=== PATIENT | male | born 1950 | race African-American/Black ===

== ENCOUNTER 2016-05-11 10:39 | Emergency (ER) | payer MEDICAID ==
[2016-05-11 10:47] VITALS: BP 124/105; PULSE 86; RESP 16; TEMP 97.7; O2SAT 93
--- NOTE | 2016-05-11 11:36 | EDPHY ---
H & P Time Seen by Provider: 05/11/16 11:13 HPI/ROS: CHIEF COMPLAINT: My eustachian tubes hurt x 1 year HISTORY OF PRESENT ILLNESS: 65-year-old male complaining of bilateral eustachian tube pain for the past year. Has been experiencing drainage with he has been evacuating with a modified turkey baster with tube on the end. Has been to his PCP on numerous instances but expresses frustration and would like to see ENT. No hearing loss. No barotrauma. No dizziness. No headache. No tinnitus. No skin lesions. PRIMARY CARE PROVIDER: [facility] REVIEW OF SYSTEMS: A ten point review of systems was performed and is negative with the exception of the items mentioned in the HPI PHYSICAL EXAM (Prior to examination, patient consented to physical exam, hands were washed and my usual and customary physical exam procedures followed) 1) GENERAL: Well-developed, well-nourished, alert and oriented. Appears to be in no acute distress. 2) HEAD: Normocephalic 3) HEENT: sclera anicteric. Oropharynx clear, no lesions. Nasopharynx clear, no lesions, no rhinorrhea. Bilateral ears have clear EACs, no otorrhea, no crusting at EAC meatus, no pain with movement of auricle, mastoid nontender, nonboggy. TMs intact, no erythema, no bulging. No skin lesions 4) LUNGS: Breathing comfortably. Smoking Status: Current every day smoker Constitutional: Initial Vital Signs Temperature (C) 36.5 C 05/11/16 10:44 Heart Rate 86 05/11/16 10:44 Respiratory Rate 16 05/11/16 10:44 Blood Pressure 124/105 H 05/11/16 10:44 O2 Sat (%) 93 05/11/16 10:44 O2 Delivery Mode Room Air Allergies/Adverse Reactions: No Known Allergies Allergy (Verified 02/15/16 14:31) Home Medications: Medication Instructions Recorded Albuterol Hfa Anes Only [Proair 2 puffs IH QID #1 mdi 03/17/16 Hfa Icu (*)] Amoxicillin/Clavulanate Pot 875 mg PO BID #14 tab 03/17/16 [Augmentin 875 MG TAB (*)] traMADol 12/01/16 Amoxicillin Trihydrate 500 mg PO Q8 7 Days 05/11/16 [Amoxicillin 500mg cap] MDM/Departure - MDM Medications Given: Discontinued Medications Amoxicillin (Amoxil Chewable 250 Mg Prepack#4) 1 btl TAKEHOME EDNOW ONE PRN Reason: Protocol Stop: 05/11/16 13:11 Last Admin: 05/11/16 13:17 Dose: 1 btl Amoxicillin (Amoxicillin) 500 mg PO EDNOW ONE PRN Reason: Protocol Stop: 05/11/16 13:11 Last Admin: 05/11/16 13:17 Dose: 500 mg ED Course/Re-evaluation: photography manager was consulted. The case manager specialist has ranged for ENT visit tomorrow at 1:[address] Jazzy leyva. I see no otorrhea or evidence of otitis externa on exam. REcomend followup with ENT tomorrow. - Depart Disposition: Home, Routine, Self-Care Clinical Impression: Otalgia of both ears Eustachian tube disorder Qualifiers: Laterality: bilateral Qualifier Code: (H69.93) Unspecified Eustachian tube disorder, bilateral Condition: Good Instructions: Amoxicillin (By mouth), Earache (ED) Additional Instructions: KOMAL, WE HAVE MADE YOU AN APPOINTMENT WITH THE [facility], FOR MAY 12 IN [place]. THE AD[address]ESS [address] [place] [address] IN [place]. THE PHONE NUMBER IS [phone]. PLEASE BE THERE AT 115 TO FILL OUT PAPERWORK. YOUR APPOINTMENT IS AT 140. Prescriptions: Amoxicillin Trihydrate [Amoxicillin 500mg cap] 500 mg PO Q8 7 Days Referrals: Jazzy Leyva MD [Medical Doctor] - 05/12/16 1:15 pm
[2016-05-11] MEDS ORDERED: AMOXICILLIN 250 MG PREPACK#4 BTL TAKEHOME ONE ×2 (12:43→13:10)
== END 2016-05-11 13:18 | disposition home or self-care (01) ==
DX: H69.93 Unspecified Eustachian tube disorder, bilateral (principal); F17.200 Nicotine dependence, unspecified, uncomplicated

== ENCOUNTER 2016-07-01 15:04 | Emergency (ER) | payer MEDICAID ==
[2016-07-01 15:17] VITALS: BP 106/79; RESP 16
[2016-07-01 15:41] VITALS: PULSE 94; TEMP 98.4; O2SAT 93
--- NOTE | 2016-07-01 15:51 | EDPHY ---
H & P Time Seen by Provider: 07/01/16 15:32 HPI/ROS: CHIEF COMPLAINT: Bilateral ear drainage HISTORY OF PRESENT ILLNESS: 65 year male a 1 year history of bilateral ear drainage. He has clear drainage from his ears that he usually notices when he wakes up in the morning. Has seen multiple doctors, without a clear diagnosis. No ear pain. He also a sore throat runny mild past few days. No fever or shortness of breath. REVIEW OF SYSTEMS: General: No fever HEENT: No eye drainage Respiratory: No shortness of breath Gastrointestinal: No vomiting Skin: No rash Neurologic: no headache Past Medical/Surgical History: Hernia Social History: PCP: [facility] Smoking Status: Current every day smoker Physical Exam: General Appearance: Alert well-appearing Eyes: Pupils equal and round, no conjunctival injection ENT, Mouth: Mucous membranes moist, ear canals are normal, tympanic membranes normal, no pharyngeal erythema Neck: Normal inspection, no adenopathy Respiratory: Lungs are clear to auscultation Cardiovascular: Regular rate and rhythm Neurological: A&O, nonfocal, normal gait Skin: Warm and dry, no rash Psychiatric: Mood and affect normal Constitutional: Initial Vital Signs Temperature (C) 36.5 C 07/01/16 15:14 Heart Rate 99 07/01/16 15:14 Respiratory Rate 16 07/01/16 15:14 Blood Pressure 106/79 07/01/16 15:14 O2 Sat (%) 95 07/01/16 15:14 O2 Delivery Mode Room Air Allergies/Adverse Reactions: No Known Allergies Allergy (Verified 02/15/16 14:31) Home Medications: Medication Instructions Recorded Albuterol Hfa Anes Only [Proair 2 puffs IH QID #1 mdi 03/17/16 Hfa Icu (*)] Amoxicillin/Clavulanate Pot 875 mg PO BID #14 tab 03/17/16 [Augmentin 875 MG TAB (*)] traMADol 03/17/16 Amoxicillin Trihydrate 500 mg PO Q8 7 Days 05/11/16 [Amoxicillin 500mg cap] Medical Decision Making ED Course/Re-evaluation: I tried to convince the patient that his ears are normal. There is no evidence of infection and there is no drainage visible. Differential Diagnosis: Includes though not limited to otitis media, otitis externa, pneumonia, abscess. Departure - Departure Disposition: Home, Routine, Self-Care Clinical Impression: Upper respiratory infection Qualifiers: URI type: unspecified viral URI Qualified Code(s): J06.9 - Acute upper respiratory infection, unspecified Ear drainage Qualifiers: Laterality: bilateral Qualified Code(s): H92.13 - Otorrhea, bilateral Condition: Good Instructions: Upper Respiratory Infection (ED) Referrals: Brenda Goldsmith [Primary Care Provider] - As per Instructions
== END 2016-07-01 15:59 | disposition home or self-care (01) ==
DX: J06.9 Acute upper respiratory infection, unspecified (principal); H92.13 Otorrhea, bilateral; F17.200 Nicotine dependence, unspecified, uncomplicated

== ENCOUNTER 2016-07-13 22:49 | Emergency (ER) | payer MEDICAID ==
[2016-07-13 23:05] VITALS: PULSE 90; RESP 16; TEMP 98.1; O2SAT 95
--- NOTE | 2016-07-13 23:37 | EDPHY ---
H & P Stated Complaint: L arm pain, BRISSA ear pain HPI/ROS: HPI CHIEF COMPLAINT: Right ear drainage, right ear pain, left shoulder pain musculoskeletal in nature HISTORY OF PRESENT ILLNESS: this patient very pleasant 65-year-old male, smokes tobacco daily, tells me that he has been having trouble with his ears and sinuses for 2 years. He has had ongoing drainage out of his ears. Presents emergency room this evening as he states that he has pain in his right ear in drainage, no fever, no headache, no neck pain, no mastoid pain. No sore throat, no runny nose. No chest pain or shortness of breath. He also separate complaint is complaining of musculoskeletal left shoulder pain is unsure if he injured it. He is requesting an x-ray of his left shoulder. He denies chest pain shortness of breath or pleuritic pain Past Medical History: Chronic sinus disease Past Surgical History: Hernia repair Social History: Daily tobacco use daily marijuana use, denies illicit drugs or alcohol. Patient tells me "I smoke a lot of MATTHEW/HERB" Family History: Noncontributory ROS REVIEW OF SYSTEMS: A comprehensive 10 point review of systems is otherwise negative aside from elements mentioned in the history of present illness. Exam Constitutional appears well nontoxic triage nursing summary reviewed, vital signs reviewed, awake/alert. Eyes normal conjunctivae and sclera, EOMI, PERRLA. HENT right ear canal cerumen debris in the base of the ear canal, mild erythema, possible early otitis externa, no significant drainage or liquid, right TM is normal, left TM and ear canal normal, sinus normal exam, no mastoid tenderness, normal inspection, atraumatic, moist mucus membranes, no epistaxis, neck supple/ no meningismus, no raccoon eyes. Respiratory clear to auscultation bilaterally, normal breath sounds, no respiratory distress, no wheezing. Cardiovascular rate normal, regular rhythm, no murmur, no edema, distal pulses normal. Gastrointestinal soft, non-tender, no rebound, no guarding, normal bowel sounds, no distension, no pulsatile mass. Genitourinary no CVA tenderness. Musculoskeletal left shoulder: full range of motion distally neurovascular intact good cap refill, good maintenance aide strength, good pulse, full range of motion of the elbow, wrist, hand, shoulder tender palpation over the AC joint and lateral shoulder, axillary nerve intact, no midline vertebral tenderness, full range of motion, no calf swelling, no tenderness of extremities, no meningismus, good pulses, neurovascularly intact. Skin pink, warm, & dry, no rash, skin atraumatic. Neurologic awake, alert and oriented x 3, AAOx3, moves all 4 extremities equally, motor intact, sensory intact, CN II-XII intact, normal cerebellar, normal vision, normal speech. Psychiatric normal mood/affect. Heme/Lymph/Immune no lymphadenopathy. Differential Diagnosis: includes but is not limited to in a particular order otitis externa, musculoskeletal injury, shoulder strain, shoulder fracture, nerve injury, musculoskeletal tear Medical Decision Making: plan for this patient had an x-ray of the left shoulder given musculoskeletal pain, and most likely will be placed on 0 8 drops for possible early right otitis externa. ED x-ray left shoulder:Negative for acute fracture. All degenerative joint disease seen. Image interpreted by myself. [id number]: Re-evaluation at this time this patient appears well nontoxic no acute distress. X-ray has been reviewed with him. No fracture. Will place on otic drops for possible early otitis externa. He understands follow-up with primary care doctor return emergency room if there is any worsening symptoms questions concerns. This time appears well nontoxic is asking for something to eat. Source: Patient - Personal History Current Tetanus/Diphtheria Vaccine: Yes Current Tetanus Diphtheria and Acellular Pertussis (TDAP): Yes Tetanus Vaccine Date: 2 years ago - Medical/Surgical History Hx Asthma: No Hx Chronic Respiratory Disease: No Hx Diabetes: No Hx Cardiac Disease: No Hx Renal Disease: No Hx Cirrhosis: No Hx Alcoholism: No Hx HIV/AIDS: No Hx Splenectomy or Spleen Trauma: No Other PMH: hernia. ongoing external ear infection,abscess and draining, - Social History Smoking Status: Current every day smoker Constitutional: Initial Vital Signs Temperature (C) 36.7 C 07/13/16 23:02 Heart Rate 90 07/13/16 23:02 Respiratory Rate 16 07/13/16 23:02 O2 Sat (%) 95 07/13/16 23:02 O2 Delivery Mode Room Air Allergies/Adverse Reactions: No Known Allergies Allergy (Verified 07/13/16 23:00) Home Medications: Medication Instructions Recorded traMADol 03/17/16 Ciprofloxacin/Hydrocortisone 10 ml OT BID #1 drops.susp 07/13/16 [Cipro Hc Otic Suspension] Departure - Departure Disposition: Home, Routine, Self-Care Clinical Impression: Left shoulder strain Qualifiers: Encounter type: initial encounter Qualified Code(s): S46.912A - Strain of unspecified muscle, fascia and tendon at shoulder and upper arm level, left arm , initial encounter Otitis externa Qualifiers: Otitis externa type: unspecified type Laterality: right Chronicity: acute Qualified Code(s): H60.501 - Unspecified acute noninfective otitis externa, right ear Condition: Good Instructions: Rotator Cuff Injury (ED), Otitis Externa (ED) Referrals: Brenda Goldsmith [Primary Care Provider] - As per Instructions Prescriptions: Ciprofloxacin/Hydrocortisone [Cipro Hc Otic Suspension] 10 ml OT BID #1 drops.susp
[2016-07-14] MEDS ORDERED: IBUPROFEN 200 MG TAB PO ONE ×2 (00:10→00:20)
== END 2016-07-14 00:33 | disposition home or self-care (01) ==
DX: S46.912A Strain of unspecified muscle, fascia and tendon at shoulder and upper arm level, left arm, initial encounter (principal); H60.501 Unspecified acute noninfective otitis externa, right ear; F17.200 Nicotine dependence, unspecified, uncomplicated; X58.XXXA Exposure to other specified factors, initial encounter
CPT/HCPCS: A4565

== ENCOUNTER → 2017-03-02 | Emergency (ER) | payer OTHER, MEDICAID ==
[2017-03-02 16:34] VITALS: BP 143/95; PULSE 91; RESP 16; TEMP 98.6; O2SAT 98
== END | disposition home or self-care (01) ==
DX: Z53.21 Procedure and treatment not carried out due to patient leaving prior to being seen by health care provider (principal)

== ENCOUNTER 2017-04-10 15:06 | Emergency (ER) | payer OTHER, MEDICAID ==
[2017-04-10 15:29] VITALS: BP 137/98; PULSE 62; RESP 18; O2SAT 97
--- NOTE | 2017-04-10 16:16 | EDPHY ---
H & P Time Seen by Provider: 04/10/17 16:00 HPI/ROS: CHIEF COMPLAINT: Ear pain, discharge HISTORY OF PRESENT ILLNESS: The patient is a 66-year-old male who presents to the emergency department with recurring your problems. Patient states that his symptoms have been going on for 2 years. He most recently was seen in [place] started on antibiotics. He took his entire course of antibiotics but is does not recall the name. Over the past weeks it is gradually worsened. He has bilateral ear discomfort. It is mild. He is concerned because he has bilateral ear discharge. This particularly occurs at night. No fevers or chills. No hearing loss. No new cough. The patient denies diabetes. REVIEW OF SYSTEMS: My complete review of systems is negative except as mentioned in the HPI. Past Medical/Surgical History: Includes recurrent ear problems, hernia Social history: The patient smokes but he is trying to quit. Smoking Status: Current every day smoker Physical Exam: 36.9, 137/90, 62, 18, 97% on room air GENERAL: Well-appearing, in no acute distress, alert. HEENT: Eyes normal to inspection, normal pharynx, no signs of dehydration. The patient's TMs are mildly erythematous bilaterally. He does have some whitish clear colored discharge in both external auditory canals. There is no tenderness to palpation with movement of his ear. No mastoid tenderness. NECK: No thyromegaly, no lymphadenopathy, supple. RESPIRATORY: Clear to auscultation bilaterally, no rales, rhonchi or wheezing. CVS: Regular rate and rhythm, no rubs, murmurs, or gallops. ABDOMEN: Soft, nontender, nondistended, no organomegaly. BACK: Normal to inspection, no CVA tenderness. SKIN: Normal color, no rash, warm, dry. No pallor. EXTREMITIES: No pedal edema, no calf tenderness, no Homans sign or cords, no joint swelling. NEURO/PSYCH: Alert and oriented x3, normal mood and affect, normal motor sensory exam. No obvious cranial nerve deficit. Constitutional: Initial Vital Signs Temperature (C) 36.9 C 04/10/17 15:15 Heart Rate 62 04/10/17 15:15 Respiratory Rate 18 04/10/17 15:15 Blood Pressure 137/98 H 04/10/17 15:15 O2 Sat (%) 97 04/10/17 15:15 O2 Delivery Mode Room Air Allergies/Adverse Reactions: No Known Allergies Allergy (Verified 04/10/17 15:24) Home Medications: Medication Instructions Recorded Amoxicillin/Clavulanate Pot 875 mg PO BID 10 Days tab 04/10/17 [Augmentin 875 mg tab] Fluticasone Nasal [Flonase Nasal 2 sprays NASAL DAILY 04/10/17 [place] (RX)] Medical Decision Making ED Course/Re-evaluation: I discussed possible etiologies with the patient. I answered all his questions. The patient will be placed on Augmentin. He has no noted drug allergies. Patient will be also given Cortisporin drops. The patient was given instructions to follow up with ENT. He has previously seen [facility] and will make an appointment to be seen next week. He will return with worsening symptoms. Differential Diagnosis: My differential includes but is not limited to otitis media, otitis externa, malignant otitis, mastoiditis, sinusitis, bacteremia - Data Points Medications Given: Neomycin/Polymyxin/Bacitr/Hydrocort (Cortisporin Ointment) 1 octavia TP TID ANNA Stop: 05/10/17 21:59 Last Admin: 04/10/17 16:34 Dose: 3 drops Discontinued Medications Amoxicillin/Clavulanate Potassium (Augmentin 875mg) 875 mg PO EDNOW ONE PRN Reason: Protocol Stop: 04/10/17 16:18 Last Admin: 04/10/17 16:33 Dose: 875 mg Amoxicillin/Clavulanate Potassium (Augmentin 875mg) 875 mg PO EDNOW ONE PRN Reason: Protocol Stop: 04/10/17 16:19 Last Admin: 04/10/17 16:33 Dose: 875 mg Departure - Departure Disposition: Home, Routine, Self-Care Clinical Impression: Otitis externa Qualifiers: Otitis externa type: unspecified type Chronicity: acute Laterality: bilateral Qualified Code(s): H60.503 - Unspecified acute noninfective otitis externa, bilateral Otitis media Qualifiers: Otitis media type: suppurative Chronicity: acute Laterality: bilateral Recurrence: recurrent Spontaneous tympanic membrane rupture: without spontaneous rupture Qualified Code(s): H66.006 - Acute suppurative otitis media without spontaneous rupture of ear drum, recurrent, bilateral Condition: Good Instructions: Otitis Externa (ED), Ear Infection (ED) Additional Instructions: Your given Augmentin (antibiotic) in the emergency department. Take your 2nd dose of antibiotic this evening when going to bed. Fill your prescription tomorrow and follow the prescription as directed. You been given Cortisporin ear drops. Apply to both ears 3 times daily. Referrals: Brenda Goldsmith [Primary Care Provider] - 2-3 days, if not improved [facility] [Outside] - 5-7 days, if not improved Prescriptions: Amoxicillin/Clavulanate Pot [Augmentin 875 mg tab] 875 mg PO BID 10 Days tab
[2017-04-10] MEDS ORDERED: AMOXICILLIN/CLAVULANATE POT 875/125 MG TAB PO ONE ×2 (16:17→16:18)
[2017-04-10] MEDS ORDERED: NEOMYCIN/POLYMYX B/HC SUSP 10 ML OTIC.BTL ONE (16:30)
[2017-04-10 16:38] VITALS: TEMP 97.5
[2017-04-10] MEDS ORDERED: CORTISPORIN 15 GM OINTMENT TP SCH (22:00)
== END 2017-04-10 16:37 | disposition home or self-care (01) ==
DX: H60.503 Unspecified acute noninfective otitis externa, bilateral (principal); H66.006 Acute suppurative otitis media without spontaneous rupture of ear drum, recurrent, bilateral; F17.200 Nicotine dependence, unspecified, uncomplicated

== ENCOUNTER 2017-04-17 12:17 | Emergency (ER) | payer OTHER, MEDICAID ==
--- NOTE | 2017-04-17 12:58 | EDPHY ---
H & P Stated Complaint: r knee swelling/may have twisted 4 days ago HPI/ROS: CHIEF COMPLAINT: Right knee pain HISTORY OF PRESENT ILLNESS: The patient is a 66 y/o male complaining of a pinching feeling on the inside of his right knee below his knee cap for 4 days. Admits to being on his knees a lot due to his living condition. Denies recent fall or twisting knee. Denies paresthesias, numbness, neck pain, weakness, urinary or bowel complaints. REVIEW OF SYSTEMS: A ten point review of systems was performed and is negative with the exception of the items mentioned in the HPI. The patient was diagnosed with an ear infection on 04/10/2017, started on Augmentin, and is improving. Past medical history: Hernia External ear infection Past surgical history: Denies Family history: Denies Social history: Transient Single Smoker General Appearance: Alert. Vital signs reviewed. Respiratory: Lungs are clear to auscultation; no wheezes, rales, or rhonchi. Cardiovascular: Regular rate and rhythm; no murmur, rub, or gallop. Gastrointestinal: Abdomen is soft and nontender, no masses or organomegaly, bowel sounds normal. Skin: Warm and dry, no rashes on exposed skin, normal color. Back: Nontender to palpation over the thoracolumbar spine. Extremities: Mild swelling of right knee, no warmth or redness. Medial joint line tenderness in right knee. Full active flexion and extension of knee. No calf tenderness or swelling. Pulses: 2+ dorsalis pedis bilaterally Neurological: Alert and oriented. Moving all four extremities easily and equally. Sensation intact to touch of lower extremities. Strength is 5 over 5 right leg with testing of all major motor groups. Normal gait. Psychiatric: Normal affect. - Personal History Current Tetanus/Diphtheria Vaccine: Yes Tetanus Vaccine Date: 2 years ago - Medical/Surgical History Hx Asthma: No Hx Chronic Respiratory Disease: No Hx Diabetes: No Hx Cardiac Disease: No Hx Renal Disease: No Hx Cirrhosis: No Hx Alcoholism: No Hx HIV/AIDS: No Hx Splenectomy or Spleen Trauma: No Other PMH: hernia. ongoing external ear infection,abscess and draining, - Social History Smoking Status: Current every day smoker Constitutional: Initial Vital Signs Temperature (C) 36.3 C 04/17/17 12:33 Heart Rate 66 04/17/17 12:33 Respiratory Rate 17 04/17/17 12:33 Blood Pressure 130/78 H 04/17/17 12:33 O2 Sat (%) 99 04/17/17 12:33 O2 Delivery Mode Room Air Allergies/Adverse Reactions: No Known Allergies Allergy (Verified 04/17/17 12:33) Home Medications: Medication Instructions Recorded Amoxicillin/Clavulanate Pot 875 mg PO BID 10 Days tab 04/10/17 [Augmentin 875 mg tab] Fluticasone Nasal [Flonase Nasal 2 sprays NASAL DAILY 04/10/17 [place] (RX)] Medical Decision Making ED Course/Re-evaluation: The patient is a 66 y/o male presenting with mild swelling of right knee and medial joint line tenderness in his knee. He has full active flexion and extension of knee. He is able to weightbear. No warmth or redness or other signs of infection. There has been no trauma and x-rays are not warranted in this setting. 400mg PO Ibuprofen administered. Reassessed patient and discussed follow up with his PCP within one week for unimproved symptoms. I have also advised him to take 400mg PO Ibuprofen every 6- 8 hours for pain. Return precautions provided; patient is comfortable with this plan. Differential Diagnosis: Considered a differential diagnosis that includes but is not limited to cellulitis, fracture, dislocation, sprain, strain, and contusion. - Data Points Medications Given: Discontinued Medications Ibuprofen (Motrin) 400 mg PO EDNOW ONE Stop: 04/17/17 13:21 Last Admin: 04/17/17 13:28 Dose: 400 mg Departure - Departure Disposition: Home, Routine, Self-Care Clinical Impression: Knee pain, right Qualifiers: Chronicity: acute Qualified Code(s): M25.561 - Pain in right knee Right knee sprain Qualifiers: Encounter type: initial encounter Involved ligament of knee: unspecified ligament Qualified Code(s): S83.91XA - Sprain of unspecified site of right knee , initial encounter Condition: Good Instructions: Knee Sprain (ED), Knee Pain (ED) Additional Instructions: Take 400mg ibuprofen 4 times a day with food for pain. Make sure you take at least 6 hours between dosages. If your symptoms do not improve in one week, follow up with your primary care provider. Return to the emergency department for worsening pain, swelling, numbness, weakness or other concerns. Referrals: Brenda Goldsmith [Primary Care Provider] - As per Instructions Report Scribed for: Lauryn Perkins Report Scribed by: Delphine Stovall Date of Report: 04/17/17 Time of Report: 13:32 Physician Review and Approval Statement: 04/17/17 12:58 Portions of this note were transcribed by the outside medical sales representative. I, Dr. Lauryn Perkins, personally performed the history, physical exam, and medical decision- making; and confirmed the accuracy of the information in the transcribed note.
[2017-04-17] MEDS ORDERED: IBUPROFEN 200 MG TAB PO ONE (13:20)
[2017-04-17 13:24] VITALS: BP 135/80; PULSE 78; RESP 16; TEMP 98.6; O2SAT 97
== END 2017-04-17 13:25 | disposition home or self-care (01) ==
DX: S83.91XA Sprain of unspecified site of right knee, initial encounter (principal); F17.200 Nicotine dependence, unspecified, uncomplicated; X58.XXXA Exposure to other specified factors, initial encounter

== ENCOUNTER 2017-04-20 19:54 | Emergency (ER) | payer OTHER, MEDICAID ==
[2017-04-20 20:06] VITALS: TEMP 98.4
[2017-04-20] MEDS ORDERED: IBUPROFEN 600 MG TAB PO ONE (20:29)
--- NOTE | 2017-04-20 20:33 | EDPHY ---
H & P Time Seen by Provider: 04/20/17 20:11 HPI/ROS: CHIEF COMPLAINT: Right knee pain HISTORY OF PRESENT ILLNESS: The patient is a 66-year-old male who presents emergency department with recurrent right knee pain. Patient was seen in the emergency department on 04/17/2017 for the same complaint. The patient complains of moderate right knee pain. He states he has been crawling on his knees due to his living condition. He reports mild swelling. No redness or warmth. No numbness or tingling. REVIEW OF SYSTEMS: My complete review of systems is negative except as mentioned in the HPI. Past Medical/Surgical History: Includes hernia, ear infection new Past surgical history: Denies Family history: Denies Social history: The patient is homeless. He smokes cigarettes. Smoking Status: Current every day smoker Physical Exam: Vitals noted. Afebrile General Appearance: Alert and no distress. Head: Pupils equal. Normal. Respiratory: No respiratory distress. Cardiac: regular rate and rhythm. Extremities: The patient has minimal swelling to the right knee. There is no warmth or erythema. No streaking up the leg. No patellar tenderness to palpation. Patient's ligaments are stable. There is no pain with passive movement of the knee. No calf tenderness or swelling. No Homans sign or cords. Neurovascular intact distally Skin: No rashes or lesions. Neuro: Alert. Normal mood and affect. Constitutional: Initial Vital Signs Temperature (C) 36.9 C 04/20/17 20:01 Heart Rate 78 04/20/17 20:01 Respiratory Rate 16 04/20/17 20:01 Blood Pressure 134/89 H 04/20/17 20:01 Allergies/Adverse Reactions: No Known Allergies Allergy (Verified 04/20/17 20:05) Home Medications: Medication Instructions Recorded Amoxicillin/Clavulanate Pot 875 mg PO BID 10 Days tab 04/10/17 [Augmentin 875 mg tab] Fluticasone Nasal [Flonase Nasal 2 sprays NASAL DAILY 04/10/17 [place] (RX)] Medical Decision Making - Diagnostics Imaging Results: Imaging Impressions Knee X-Ray 04/20/17 20:29 Impression: 1. Suspect joint mice in the medial tibiofemoral compartment, with mild tibiofemoral joint space narrowing. 2. Consider MRI imaging followup. ED Course/Re-evaluation: In the emergency department I discussed possible etiologies with the patient. I answered all his questions. Patient was given ibuprofen 40 mg orally. An x- ray of his right knee was ordered. I reviewed the patient's medical record from 04/17/2017 X-ray: Please refer to the dictated report. Patient has multiple small osseous intra-articular spots. No acute fracture dislocation. I discussed the results with the patient. I answered all his questions. He will follow up with Orthopedics. He is given warnings prior to leaving. Differential Diagnosis: My differential includes but is not limited to degenerative joint disease, arthritis, fracture, dislocation, septic joint, gout, cellulitis - Data Points Medications Given: Discontinued Medications Ibuprofen (Motrin) 600 mg PO EDNOW ONE Stop: 04/20/17 20:30 Last Admin: 04/20/17 20:57 Dose: 600 mg Departure - Departure Disposition: Home, Routine, Self-Care Clinical Impression: Right knee pain Qualifiers: Chronicity: acute Qualified Code(s): M25.561 - Pain in right knee Condition: Good Instructions: Knee Pain (ED) Additional Instructions: Your x-ray did not show any fracture dislocation. Follow up with the [facility]. Take ibuprofen regularly for the discomfort. Referrals: [facility],. [Clinic] - 5-7 days, call for appt. Yasmin Norris MD [Medical Doctor] - 5-7 days, call for appt.
[2017-04-20 22:22] VITALS: BP 113/70; PULSE 82; RESP 18; O2SAT 92
== END 2017-04-20 22:22 | disposition home or self-care (01) ==
DX: M25.561 Pain in right knee (principal); F17.200 Nicotine dependence, unspecified, uncomplicated

== ENCOUNTER 2018-01-08 12:27 | Emergency (ER) | payer OTHER, MEDICAID ==
--- NOTE | 2018-01-08 14:34 | EDPHY ---
General - History Smoking Status: Current every day smoker Time Seen by Provider: 01/08/18 14:26 Narrative: CHIEF COMPLAINT: Right ear pain HISTORY OF PRESENT ILLNESS: Patient presents with complaints of right ear pain patent says he has had this for 3 years, but it has become worse over the past 3 days. He describes it as a fluid behind the ears the drains into his throat. It is painful. No fever. No headache. No nausea vomiting. No chest pain, cough or shortness of breath. He says he has been seen for this several times in the past, treated with antibiotic steroids and done well. No other associated complaints or modifying factors. REVIEW OF SYSTEMS: Ten systems reviewed and are negative unless otherwise noted in the HPI PAST MEDICAL HISTORY: Hernia, recurrent ear infections PAST SURGICAL HISTORY: No surgical history SOCIAL HISTORY: Daily smoker FAMILY HISTORY: Noncontributory EXAMINATION: General Appearance: Alert, no distress ENT: EACs are clear bilaterally. They left TM has serous otitis media without acute otitis media or perforation. Right TM is bulging with mild erythema and serous otitis media. No mastoiditis. Cardiovascular: Pulses normal throughout. Brisk cap refill Neurological: A&O, sensory symmetric, strength symmetric Skin: Warm and dry, no rash Extremities: Nontender, no pedal edema Psychiatric: Mood and affect normal DIFFERENTIAL DIAGNOSES: Including but not limited to serous otitis media, acute otitis media, chronic serous otitis media, upper respiratory infection MDM: 2:30 p.m. Right-sided serous otitis media with mild otitis media without perforation. No otitis externa. No mastoiditis. We discussed the need for short course of steroid, pseudoephedrine and possible antibiotic therapy. We also discussed that he for smoking cessation and follow up with ENT physician. We discussed ED precautions for any worsening symptoms, headache or drainage from the ear. We discussed anti-inflammatories after the steroid. We discussed follow up with primary care physician as well. I have answered all his questions. He is happy with this plan and discharged in stable condition. SUPERVISION: This patient was independently evaluated without direct involvement of or examination by the attending physician. (Da Deng) The patient was evaluated and managed by the physician registered nurse first assistant. I have reviewed this chart and I agree with the findings and plan of care as documented , as indicated by my signature. I am the secondary supervising physician. ( Lauryn Perkins) - Objective Vital Signs: Initial Vital Signs Temperature (C) 36.8 C 01/08/18 12:44 Heart Rate 77 01/08/18 12:44 Respiratory Rate 18 01/08/18 12:44 Blood Pressure 125/95 H 01/08/18 12:44 O2 Sat (%) 98 01/08/18 12:44 O2 Delivery Mode Room Air Allergies/Adverse Reactions: No Known Allergies Allergy (Verified 12/06/17 11:47) Home Medications: Medication Instructions Recorded Azithromycin [Zithromax] 250 mg PO DAILY #6 tab 12/06/17 predniSONE 40 mg PO DAILY #10 tab 12/06/17 Amoxicillin/Clavulanate Pot 875 mg PO BID #14 tab 01/08/18 [Augmentin 875 MG TAB (*)] Dexamethasone [Decadron 4 MG (*)] 8 mg PO ONCE #2 tab 01/08/18 Departure - Departure Disposition: Home, Routine, Self-Care Clinical Impression: Serous otitis media, Otitis media Condition: Good Instructions: Ear Infection (ED), Serous Otitis Media (ED) Additional Instructions: 1. Recommend smoking cessation 2. Medications as prescribed to completion 3. Follow up with primary care physician this week 4. Contact ENT physician for outpatient care 5. ED precautions as discussed 6. Recommend pseudoephedrine, 30 mg every 6-8 hours as needed Referrals: Brenda Goldsmith [Primary Care Provider] - As per Instructions Adama Robin MD [Medical Doctor] - As per Instructions Prescriptions: Amoxicillin/Clavulanate Pot [Augmentin 875 MG TAB (*)] 875 mg PO BID #14 tab Dexamethasone [Decadron 4 MG (*)] 8 mg PO ONCE #2 tab
[2018-01-08 14:48] VITALS: BP 136/76
== END 2018-01-08 14:48 | disposition home or self-care (01) ==
DX: H66.91 Otitis media, unspecified, right ear (principal); F17.200 Nicotine dependence, unspecified, uncomplicated

== ENCOUNTER 2018-02-04 09:38 | Emergency (ER) | payer OTHER, MEDICAID ==
[2018-02-04] MEDS ORDERED: LIDOCAINE 4%/MENTHOL 1% PATCH TD ONE (09:57)
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
[2018-02-04] MEDS ORDERED: IBUPROFEN 600 MG TAB PO ONE (09:58)
[2018-02-04 10:58] VITALS: BP 119/73
[2018-02-04] MEDS ORDERED: PATCH REMOVAL 1 EA PATCH TD SCH (21:00)
== END 2018-02-04 10:59 | disposition home or self-care (01) ==
DX: H65.493 Other chronic nonsuppurative otitis media, bilateral (principal); M25.512 Pain in left shoulder; R07.89 Other chest pain; T76.11XA Adult physical abuse, suspected, initial encounter; F17.200 Nicotine dependence, unspecified, uncomplicated

== ENCOUNTER 2018-03-25 04:59 | Emergency (ER) | payer OTHER, MEDICAID ==
--- NOTE | 2018-03-25 05:31 | EDPHY ---
H & P Stated Complaint: "fluid in both ears" Time Seen by Provider: 03/25/18 05:30 HPI/ROS: HPI CHIEF COMPLAINT: Bilateral ear discomfort. HISTORY OF PRESENT ILLNESS: Very pleasant 67-year-old male, presents emergency room bilateral ear discomfort. Feels full. Thinks there infected. No fever. Denies sore throat, denies chest pain or shortness of breath, denies productive cough. Past Medical History: Chronic ear pain, hernia. Past Surgical History: Denies significant surgical history Social History: Homeless, lives in his RV. Denies drugs or alcohol. Family History: Noncontributory PCP Dr. Goldsmith. ROS REVIEW OF SYSTEMS: 10 Systems were reviewed and negative with the exception of the elements mentioned in the history of present illness. Exam Constitutional triage nursing summary reviewed, vital signs reviewed, awake/ alert. Eyes normal conjunctivae and sclera, EOMI, PERRLA. HENT bilateral TMs are bulging, no significant redness. Fluid behind both ears. Posterior pharynx unremarkable. moist mucus membranes, no epistaxis, neck supple/ no meningismus, no raccoon eyes. Respiratory clear to auscultation bilaterally, normal breath sounds, no respiratory distress, no wheezing. Cardiovascular rate normal, regular rhythm, no murmur, no edema, distal pulses normal. Gastrointestinal soft, non-tender, no rebound, no guarding, normal bowel sounds, no distension, no pulsatile mass. Genitourinary no CVA tenderness. Musculoskeletal no midline vertebral tenderness, full range of motion, no calf swelling, no tenderness of extremities, no meningismus, good pulses, neurovascularly intact. Skin pink, warm, & dry, no rash, skin atraumatic. Neurologic awake, alert and oriented x 3, AAOx3, moves all 4 extremities equally, motor intact, sensory intact, CN II-XII intact, normal cerebellar, normal vision, normal speech. Psychiatric normal mood/affect. Heme/Lymph/Immune no lymphadenopathy. Differential Diagnosis: Includes but is not limited to in a particular order bilateral otitis media, middle ear effusions, sinus disease Medical Decision Making: Plan for this patient recommend Augmentin, close follow up with ENT. Return precautions discussed with the patient. There is no mastoid tenderness on exam. No evidence of mastoiditis. Re-evaluation: 0542: Plan for this patient Augmentin 1st dose here in emergency room. Augmentin prescription provided. Planes of bilateral ear pain. Fullness. He does have fluid behind both ears no significant redness. No mastoid tenderness on exam. Patient nontoxic appearing Follow-up PCP as well as ENT. Return if worse. Source: Patient - Personal History Current Tetanus/Diphtheria Vaccine: Yes Current Tetanus Diphtheria and Acellular Pertussis (TDAP): Yes Tetanus Vaccine Date: 2 years ago - Medical/Surgical History Hx Asthma: No Hx Chronic Respiratory Disease: No Hx Diabetes: No Hx Cardiac Disease: No Hx Renal Disease: No Hx Cirrhosis: No Hx Alcoholism: No Hx HIV/AIDS: No Hx Splenectomy or Spleen Trauma: No Other PMH: hernia. chronic ear infection - Social History Smoking Status: Current some day smoker Constitutional: Initial Vital Signs Temperature (C) 36.4 C 03/25/18 05:00 Heart Rate 98 03/25/18 05:00 Respiratory Rate 16 03/25/18 05:00 Blood Pressure 116/91 H 03/25/18 05:00 O2 Sat (%) 97 03/25/18 05:00 O2 Delivery Mode Room Air Allergies/Adverse Reactions: No Known Allergies Allergy (Verified 03/25/18 05:04) Home Medications: Medication Instructions Recorded Fluticasone Nasal [Flonase Nasal 1 sprays NASAL BID #1 mdi 03/12/18 [place] (RX)] Amoxicillin/Clavulanate Pot 875 mg PO BID #14 tab 03/25/18 [Augmentin 875 MG TAB (*)] Prednisone 03/25/18 Medical Decision Making - Data Points Medications Given: Discontinued Medications Amoxicillin/Clavulanate Potassium (Augmentin 875mg) 875 mg PO EDNOW ONE PRN Reason: Protocol Stop: 03/25/18 05:35 Last Admin: 03/25/18 05:36 Dose: 875 mg Departure - Departure Disposition: Home, Routine, Self-Care Clinical Impression: Otitis media Qualifiers: Otitis media type: unspecified Chronicity: acute Qualified Code(s): H66.90 - Otitis media, unspecified, unspecified ear Condition: Good Instructions: Ear Infection (ED) Additional Instructions: 1. Recommend follow up with ENT. 2. Return emergency room if worsening symptoms 3. Antibiotics as prescribed. Referrals: Brenda Goldsmith [Primary Care Provider] - As per Instructions Carlos Naranjo MD [Medical Doctor] - As per Instructions Prescriptions: Amoxicillin/Clavulanate Pot [Augmentin 875 MG TAB (*)] 875 mg PO BID #14 tab
[2018-03-25] MEDS ORDERED: AMOXICILLIN/CLAVULANATE POT 875/125 MG TAB PO ONE (05:34)
[2018-03-25 06:25] VITALS: BP 120/72
== END 2018-03-25 06:18 | disposition home or self-care (01) ==
DX: H66.93 Otitis media, unspecified, bilateral (principal); F17.200 Nicotine dependence, unspecified, uncomplicated

== ENCOUNTER 2018-08-05 19:53 | Emergency (ER) | payer OTHER, MEDICAID ==
--- NOTE | 2018-08-05 19:58 | EDPHY ---
H & P Time Seen by Provider: 08/05/18 19:58 - Personal History Tetanus Vaccine Date: 2 years ago - Medical/Surgical History Hx Asthma: No Hx Chronic Respiratory Disease: No Hx Diabetes: No Hx Cardiac Disease: No Hx Renal Disease: No Hx Cirrhosis: No Hx Alcoholism: No Hx HIV/AIDS: No Hx Splenectomy or Spleen Trauma: No Other PMH: hernia. chronic ear infection - Social History Smoking Status: Current some day smoker Constitutional: Initial Vital Signs Temperature (C) 36.5 C 08/05/18 19:57 Heart Rate 89 08/05/18 19:57 Respiratory Rate 16 08/05/18 19:57 Blood Pressure 132/82 H 08/05/18 19:57 O2 Sat (%) 96 08/05/18 19:57 O2 Delivery Mode Room Air Allergies/Adverse Reactions: No Known Allergies Allergy (Verified 08/05/18 19:57) Home Medications: Medication Instructions Recorded Fluticasone Nasal [Flonase Nasal 1 sprays NASAL BID #1 mdi 03/12/18 [place] (RX)] Amoxicillin/Clavulanate Pot 875 mg PO BID #14 tab 03/25/18 [Augmentin 875 MG TAB (*)] Prednisone 03/25/18 Cephalexin [Keflex (RX)] 500 mg PO TID #30 cap 08/05/18 Neomy Sulf/Polymyx B Sulf/Hc 4 drops OT TID #1 otic.btl 08/05/18 [Cortisporin Otic Suspension] Medical Decision Making ED Course/Re-evaluation: CHIEF COMPLAINT: Fluid draining from the right ear and some from the left HISTORY OF PRESENT ILLNESS: 67-year-old gentleman who states he has had several days of fluid draining from his right ear and he is having decreased hearing from his right ear. He also feels like his little bit of pain in his left ear and has had some drainage from that intermittently. Patient denies fevers or chills. Denies headache. Denies any systemic illness. Denies any ear trauma. REVIEW OF SYSTEMS: A comprehensive 10 system review of systems is otherwise negative aside from elements mentioned in the history of present illness and medical decision making. PHYSICAL EXAM: HR, BP, O2 Sat, RR. Temp noted General Appearance: Alert, well hydrated, appropriate, and non-toxic appearing. Head: Atraumatic without scalp tenderness or obvious injury Eyes: Pupils equal, round, reactive to light and accommodation, EOMI, no trauma , no injection. Ears: Perforated tympanic membrane on the right with drainage. [place] look normal. Left ear with otitis media. Nose: Atraumatic, no rhinorrhea, clear. Throat: There is no erythema or exudates, no lesions, normal tonsils, mucus membranes moist. Neck: Supple, 2+ carotid upstroke, nontender, no lymphadenopathy. Respiratory: No retractions, no distress, no wheezes, and no accessory muscle use. Lungs are clear to auscultation bilaterally. Cardiovascular: Regular rate and rhythm, no murmurs, rubs, or gallops. Bilateral carotid, radial, dorsalis pedis, and posterior tibial pulses intact. Good capillary refill all extremities. Gastrointestinal: Abdomen is soft, nontender, non-distended, no masses, no rebound, no guarding, no peritoneal signs. Musculoskeletal: Normal active ROM of all extremities, atraumatic. Neurological: Alert, appropriate, and interactive. The patient has normal DTRs and non-focal cranial nerves, motor, sensory, and cerebellar exam. Skin: No rashes, good turgor, no nodules on palpation. Past medical history: Noncontributory Past surgical history: Noncontributory Family history: Noncontributory Social history: Single, not employed, does not abuse tobacco drugs or alcohol DIAGNOSTICS/PROCEDURES/CRITICAL CARE TIME: Noncontributory DIFFERENTIAL DIAGNOSIS: Includes but is not limited to: Perforated tympanic membrane, otitis media, otitis externa, barotrauma MEDICAL DECISION MAKING: This patient has perforated tympanic membrane. I will use Cortisporin otic suspension in both ears additionally I will start him on cephalexin internally for his left otitis media. He basically has bilateral otitis media with perforation on the right giving him some otitis externa on the right also. Departure - Departure Disposition: Home, Routine, Self-Care Clinical Impression: Otitis media, Otitis media, serous, TM rupture Condition: Good Instructions: Ear Infection (ED), Ruptured Eardrum (ED) Additional Instructions: 1. Use the ear drops as applied. 2. Take Keflex as prescribed. 3. Follow up with an ENT within the next week. 4. Return to the Emergency Department for severe headache, vomiting, vision changes, confusion, fever or other concerns. Referrals: Janes Pace MD [Medical Doctor] - As per Instructions Prescriptions: Neomy Sulf/Polymyx B Sulf/Hc [Cortisporin Otic Suspension] 4 drops OT TID #1 otic.btl
[2018-08-05 20:01] VITALS: BP 132/82
[2018-08-05] MEDS ORDERED: NEOMYCIN/POLYMYX B/HC SUSP 10 ML OTIC.BTL EACHEAR ONE (20:09)
[2018-08-05] MEDS ORDERED: CEPHALEXIN 500 MG CAP PO ONE (20:14)
[2018-08-05] MEDS ORDERED: CEPHALEXIN 500MG PREPACK#4 BTL TAKEHOME ONE ×2 (20:37→20:39)
== END 2018-08-05 20:45 | disposition home or self-care (01) ==
DX: H65.03 Acute serous otitis media, bilateral (principal); H72.93 Unspecified perforation of tympanic membrane, bilateral